=== PATIENT | male | born 1945 | race Caucasian/White ===

== ENCOUNTER 2017-10-05 07:10 | Emergency (ER) | payer BC, OTHER ==
--- NOTE | 2017-10-05 07:39 | UC ---
Respiratory Complaint HPI - HPI Summary HPI Summary: 3-[address], FEVER TMAX 101, COUGH, MYALGIAS, NAUSEA. STARTED WITH WATERY DIARRHEA YESTERDAY. FEELS EXTREMELY FATIGUED. LOST HIS VOICE. FOUND TO BE HYPOXIC HERE WITH O2SAT 88-90%. HAS ASTHMA. NO H/O SMOKING. UTD FLU SHOT. - History of Current Complaint Stated Complaint: SORE THROAT Time Seen by Provider: 10/05/17 07:14 Hx Obtained From: Patient, Family/Miner - Onset/Duration: Gradual Onset, Lasting Days, Still Present Timing: Constant Severity Initially: Moderate Severity Currently: Moderate Pain Intensity: 6 Pain Scale Used: 0-10 Numeric Character: Cough: Productive - YELLOW SPUTUM Aggravating Factors: Nothing Alleviating Factors: Nothing Associated Signs And Symptoms: Positive: Fever, URI. Negative: Dyspnea, Wheezing - Allergies/Home Medications Allergies/Adverse Reactions: Allergies Allergy/AdvReac Type Severity Reaction Status Date / Time Antihistamines, AdvReac See Comment Verified 10/05/17 07:43 Diphenhydramine-typ Home Medications: Home Medications Acetaminophen [Acetaminophen Extra Stren] 2 tab PO QID PRN 10/05/17 [History Confirmed 10/05/17] PMH/Surg Hx/FS Hx/Imm Hx Respiratory History: Asthma - Surgical History Surgical History: Yes Surgery Procedure, Year, and Place: L hip replacement. L scaphoid pinned. HERNIA REPAIR - Family History Known Family History: Negative: Hypertension - Social History Alcohol Use: Occasionally Substance Use Type: None Smoking Status (MU): Never Smoked Tobacco Review of Systems Constitutional: Fever, Fatigue ENT: Sore Throat Respiratory: Cough Cardiovascular: Negative Gastrointestinal: Diarrhea, Nausea Musculoskeletal: Myalgia Neurological: Weakness All Other Systems Reviewed And Are Negative: Yes Physical Exam Triage Information Reviewed: Yes Appearance: No Pain Distress, Well-Nourished, Ill-Appearing - APPEARS FATIGUED Vital Signs Reviewed: Yes Eyes: Positive: Conjunctiva Clear ENT: Positive: Hearing grossly normal, Pharynx normal, TMs normal Neck: Positive: Supple, Nontender, No Lymphadenopathy Respiratory: Positive: Lungs clear, Normal breath sounds, No respiratory distress. Negative: Crackles, Stridor, Wheezing Cardiovascular: Positive: Tachycardia Abdomen Description: Positive: Soft Musculoskeletal: Positive: No Edema Neurological: Positive: Alert Psychological: Positive: Normal Response To Family, Age Appropriate Behavior Skin: Negative: rashes UC Diagnostic Evaluation - EKG Cardiac Rate: Tachycardia Cardiac Rhythm: Other Rhythm: New - TACHYCARDIC 116 BPM Ectopy: None ST Segment: Normal Respiratory Course/Dx - Course Course Of Treatment: TO [facility] ED BY AMBULANCE - Differential Dx/Diagnosis Provider Diagnoses: HYPOXIA/FEVER/TACHYCARDIA - Physician Notification/Consults Discussed Patient Care With: Rigo Salas - TO [facility] ED BY AMBULANCE Time Discussed With Above Provider: 07:49 Instructed by Provider To: MD Will See In ED Discharge - Discharge Plan Condition: Stable Disposition: TRANS HIGHER LVL OF CARE FAC Referrals: Elizabeth Romeo MD [Primary Care Provider] -
[2017-10-05 07:42] VITALS: BP 121/69
== END 2017-10-05 08:00 | disposition short-term general hospital (02) ==
LOC: UCEAST 07:10
DX: R09.02 Hypoxemia (principal); R50.9 Fever, unspecified; R00.0 Tachycardia, unspecified; R05 Cough; J02.9 Acute pharyngitis, unspecified; M79.1 Myalgia; R11.0 Nausea; J45.909 Unspecified asthma, uncomplicated; Z88.8 Allergy status to other drugs, medicaments and biological substances
CPT/HCPCS: 93005; 99213; G0463

== ENCOUNTER 2017-10-05 08:15 | Observation (INO) | payer BC ==
[2017-10-05 09:45] LABS: Hematocrit 43 % (42-52); Hemoglobin 14.8 g/dl (14.0-18.0); Mean Corpuscular HGB Conc 35 g/dl (31-36); Mean Corpuscular Hemoglobin 29 pg (27-31); Mean Corpuscular Volume 84 fL (80-94); Mean Platelet Volume 8 um3 (7.4-10.4); Red Blood Count 5.07 10^6/ul (4.0-5.4); Red Cell Distribution Width 14 % (10.5-15); White Blood Count 13.7 10^3/ul (3.5-10.8)
[2017-10-05] MEDS ORDERED: cefTRIAXone(*) 1 GM in NS 0.9% 50 ML* 50 ML IVPB ONE (09:50)
[2017-10-05] MEDS ORDERED: Azithromycin IV(*) 500 MG in NS 0.9% 250 ML* 250 ML IVPB ONE (09:50)
[2017-10-05 09:51] LABS: Comments Flag Yes
[2017-10-05 09:52] LABS: Add Diff/Slide Review? Slide Review Added
[2017-10-05 09:59] LABS: Albumin 3.9 g/dL (3.2-5.2); BUN/Creatinine Ratio 21.6 (8-20); Calcium 9.1 mg/dL (8.6-10.3); EGFR African American 92.9 (>60); EGFR Non-African American 72.2 (>60); Globulin 3.8 g/dL (2-4); Potassium 3.4 mmol/L (3.5-5.0); Total Bilirubin 1.1 mg/dL (0.2-1.0); Total Protein 7.7 g/dL (6.4-8.9)
[2017-10-05 10:00] LABS: Troponin I 0.02 ng/mL (<0.04)
[2017-10-05 10:08] LABS: Immature Granulocytes 6 % (0-9); Myelocytes % 1 % (0-1); Neutrophil % 74 % (38-83); Reactive Lymph % 5 % (0-6)
[2017-10-05 10:09] LABS: RBC Morphology Normal (Normal)
[2017-10-05] MEDS ORDERED: Iohexol 350* (CONTRAST) 500 ML MDV IV ONE (10:18)
[2017-10-05] MEDS ORDERED: NS 0.9% 1000 ML* 1,000 ML IV ONE ×2 (10:21→10:22)
[2017-10-05] MEDS ORDERED: NS 0.9% 500 ML* 500 ML IV ONE (10:22)
--- NOTE | 2017-10-05 10:22 | RAD ---
Indication: Cough, shortness of breath. 2 views of the chest including dual energy PA views demonstrate no mediastinal shift. Heart is of normal size and configuration. Lung dowd appear clear. IMPRESSION: No active cardiopulmonary disease is noted.
[2017-10-05] MEDS ORDERED: Acetaminophen TAB* 325 MG PO ONE (11:03)
--- NOTE | 2017-10-05 11:14 | RAD ---
Indication: Elevated d-dimer, hypoxia. Contrast: Administered 72.0 ml of OMNIPAQUE 350 mg/ml. CTA of the chest was performed after IV contrast administration. Coronal and sagittal reconstructed images were obtained. Pulmonary arterial tree is adequately opacified. No obvious filling defects are present to suggest pulmonary embolus. Small 3 to 5 mm pretracheal lymph nodes are noted. No hilar adenopathy is noted. The heart demonstrates no pericardial effusion. The trachea and major bronchi appear patent. Lung dowd demonstrate dependent changes. No alveolar consolidation is noted. Hepatic steatosis is noted. IMPRESSION: No definite pulmonary embolus is noted.
[2017-10-05] MEDS ORDERED: Albuterol 2.5 MG/3 ML NEB.SOL* (0.083%) INH PRN (11:22)
[2017-10-05] MEDS ORDERED: Acetaminophen TAB* 325 MG PO PRN (11:22)
[2017-10-05] MEDS ORDERED: Potassium Chlor TAB* 20 MEQ TAB.ER PO ONE (11:25)
[2017-10-05] MEDS ORDERED: Ondansetron INJ* 2 MG/ML VIAL IV PRN (11:25)
[2017-10-05] MEDS ORDERED: NS 0.9% 1000 ML* 1,000 ML IV SCH (11:30)
[2017-10-05 11:52] LABS: Urine Bacteria Absent (Absent); Urine Bilirubin Negative (Negative); Urine Glucose Negative (Negative); Urine Nitrite Negative (Negative)
[2017-10-05] MEDS: Albuterol/Ipratropium NEB.SOL* Albuterol 2.5 MG/Ipratropium 0.5 MG 3 ML INH SCH ×4 (13:38→23:54)
--- NOTE | 2017-10-05 14:56 | HP ---
CC: Dr. Orr * HISTORY AND PHYSICAL: DATE OF ADMISSION: 10/05/17 PRIMARY CARE PROVIDER: Dr. Orr. ATTENDING PHYSICIAN WHILE IN THE HOSPITAL: Damon Mehta MD * (report dictated by Chepe Garcia NP). CHIEF COMPLAINT: 1. Cough. 2. Fevers. 3. Chills. HISTORY OF PRESENT ILLNESS: Mr. Rodriguez is a 72-year-old male patient, really his only history is asthma. He comes into our ER today and states that he recently did have sick contacts. His grandchild and his daughter were both sick. They were having similar symptoms such as sore throat, congested cough. He has been bringing up a yellow type sputum. He just has not been feeling well. He has been feeling weak, tired, fatigued. He denies really aching all over, but he states he has been having some nausea and diarrhea starting today. He was concerned and went to [facility] today where it was noted that he was hypoxic, so they sent him over to the hospital today to re- evaluate him. He states he is having some chest discomfort particularly when he coughs and he states he has been having fever as high as 101 and he has had some shortness of breath that has been getting progressively worse really since Saturday. He recently did have travel to [place] with his . Denies any calf pain or leg pain. Denies having any abdominal discomfort, but he states he just does not feel well. There was concern, he came in, it was noted he had an elevated white count. He was febrile. He is a little tachycardic. In addition , he is mildly hypoxic right around 89% to 90% on room air, so we were asked to evaluate for admission. PAST MEDICAL HISTORY: Significant for asthma. PAST SURGICAL HISTORY: 1. He has had total hip replacement. 2. He has had wrist surgery. HOME MEDICATIONS: Include according to him, he is only taking; 1. Ventolin 1 puff every 4 hours as needed, but he uses only 3 times a day. 2. He is also taking Advair 1 puff inhaled b.i.d. 4. He has been taking Tylenol 650 mg every 4 to 6 hours as needed. ALLERGIES TO MEDICATIONS: Include antihistamines. FAMILY HISTORY: There was no reports of heart disease, strokes, or cancers by the patient. It was reviewed and noncontributory. SOCIAL HISTORY: She does not smoke. She does not drink. Surrogate decision maker is his . REVIEW OF SYSTEMS: There is a documented fever. Denied having any significant weight change. There was no double vision. Denies having any ear discharge. There was rhinorrhea. There was sore throat. No thyroid enlargement. There is chest pain per my HPI. He did admit to having shortness of breath, but no orthopnea. No nocturnal dyspnea. There was no abdominal pain. No nausea, no vomiting, no dysuria, no frequency, no seizure, no loss of consciousness, no pruritus and no skin ulcerations. Review of 14 systems completed, all others negative. PHYSICAL EXAMINATION GENERAL: At this time, Mr. Rodriguez is a 72-year-old male patient. He appears to be well nourished, well developed. He is sitting in the ED stretcher. He does not appear to be in any acute distress. VITAL SIGNS: Blood pressure 147/76, pulse 104, respirations 18, O2 sat 95% on 2 L, and his temperature was 101. HEENT: Head: Atraumatic. Eyes: EOMs are intact. Sclerae anicteric. Throat : Oral mucosa appears to be moist. No oropharyngeal erythema. Ears: His TMs do not appear to be erythematic at this point. LUNGS: He did have coarse breath sounds in the upper lobes. He had some wheezing in the lower bases and decreased air. Decreased breath sounds in the lower lobes. HEART: Sounds S1 and S2. He is regular rate and rhythm. He had no murmurs, rubs, or gallops. He is a little tachycardic. ABDOMEN: Soft, flat, nontender. His bowel sounds are present. EXTREMITIES: Pulses were 2+ throughout. He had no peripheral edema. He had 5/ 5 strength. NEUROLOGIC: At this point, neurologically he is awake, he is alert, he is oriented x3. His tongue is midline. His direct chill caster were equal. He had no gross focal deficits. SKIN: Intact. LABORATORY DATA/DIAGNOSTIC STUDIES: WBC of 13.7, RBC of 5.07, hemoglobin 14.8 , hematocrit of 43, and platelet count of 172,000. D-dimer was 662. Sodium 126 , potassium 3.4, chloride of 94, bicarbonate 21, BUN 22, creatinine 1.02, glucose 136, lactic 1, calcium 9.1. Total bilirubin 1.1, AST 42, ALT 32, alkaline phosphatase 89, troponin 0.02, albumin 3.9. Serology was negative for flu. He had a chest x-ray obtained today, which revealed no active cardiopulmonary disease. He had an EKG obtained today showing a sinus tachycardia, rate of 111. He had no ST elevations. No T-wave inversions were noted. He had a CTA of the chest which revealed no definite PE is identified. He did have small paratracheal lymph nodes identified. Old medical records reviewed. ASSESSMENT AND PLAN: Mr. Rodriguez is a 72-year-old male patient coming into the ED today with complaints of cough, shortness of breath, not feeling well. On evaluation today, found to have signs of sepsis. We were asked to evaluate for admission. He will be admitted under inpatient status for: 1. Sepsis secondary to most likely viral illness, although early pneumonia cannot be excluded. At this point, I will go ahead and place the patient on azithromycin and Rocephin. He did get a 2 L normal saline bolus here in the ED. He got blood cultures and his lactic was normal. We will get a serial lactic. We will hydrate him and we will continue these antibiotics and again wait for a source to identify itself. 2. Asthma with exacerbation. At this point, we will put him on Dulera, steroids, nebs every 4 hours, pulmonary toileting in the form of a flutter valve , get a sputum culture and continue to follow. 4. Diarrhea. It is probably secondary again to a viral illness. We will send off stool studies and again, we will keep the patient hydrated. 5. DVT prophylaxis. He will be placed on heparin subcu. 6. Code status. He is full code. 7. Fluids, electrolytes, and nutrition. He can have a regular diet. TIME SPENT: Time spent on the admission was 60 minutes, greater than half the time was spent [id number] with the patient obtaining my history and physical; the other half time was spent going over the plan of care with the patient and implementing plan of care. I did discuss the plan of care with my attending, Dr. Mehta, he is in agreement. CHEPE GARCIA BILL [id number]/[facility] #: [id number] AVELINO
[2017-10-05 15:02] LABS: BUN/Creatinine Ratio 19.6 (8-20); EGFR African American 92.9 (>60); EGFR Non-African American 72.2 (>60); Potassium 3.9 mmol/L (3.5-5.0)
[2017-10-05] MEDS: Heparin VIAL(*) 5000 UNITS/ML VIAL (FIVE THOUSAND) SUBCUT SCH ×2 (15:19→22:30)
[2017-10-05] MEDS: predniSONE TAB* 20 MG PO SCH (15:56)
[2017-10-05] MEDS: Mometasone/Formoter 200/5 MDI INH SCH (20:22)
[2017-10-06] MEDS: Albuterol/Ipratropium NEB.SOL* Albuterol 2.5 MG/Ipratropium 0.5 MG 3 ML INH SCH ×2 (04:16→07:50)
[2017-10-06 05:47] LABS: Hematocrit 37 % (42-52); Hemoglobin 12.8 g/dl (14.0-18.0); Mean Corpuscular HGB Conc 34 g/dl (31-36); Mean Corpuscular Hemoglobin 29 pg (27-31); Mean Corpuscular Volume 84 fL (80-94); Mean Platelet Volume 8 um3 (7.4-10.4); Red Blood Count 4.43 10^6/ul (4.0-5.4); Red Cell Distribution Width 14 % (10.5-15); White Blood Count 9.1 10^3/ul (3.5-10.8)
[2017-10-06 05:54] LABS: BUN/Creatinine Ratio 16.7 (8-20); Calcium 8.3 mg/dL (8.6-10.3); EGFR African American 107.3 (>60); EGFR Non-African American 83.4 (>60); Potassium 3.2 mmol/L (3.5-5.0)
[2017-10-06] MEDS: Heparin VIAL(*) 5000 UNITS/ML VIAL (FIVE THOUSAND) SUBCUT SCH (06:20)
[2017-10-06] MEDS ORDERED: Potassium Chlor TAB* 20 MEQ TAB.ER PO ONE (07:29)
[2017-10-06] MEDS: Mometasone/Formoter 200/5 MDI INH SCH (07:52)
[2017-10-06] MEDS: predniSONE TAB* 20 MG PO SCH (08:16)
[2017-10-06] MEDS ORDERED: cefTRIAXone(*) 1 GM in NS 0.9% 50 ML* 50 ML IVPB SCH (10:30)
[2017-10-06] MEDS ORDERED: Albuterol/Ipratropium NEB.SOL* Albuterol 2.5 MG/Ipratropium 0.5 MG 3 ML INH SCH (11:00)
[2017-10-06] MEDS ORDERED: Azithromycin IV(*) 250 MG in NS 0.9% 250 ML* 250 ML IVPB SCH (11:00)
[2017-10-06 11:27] VITALS: BP 126/57
--- NOTE | 2017-10-06 11:42 | DCNOTE ---
Subjective Date of Service: 10/06/17 Interval History: Patient seen and examined at bedside. Patient reports feeling significantly better. Still has no voice. Has 2 episodes of diarrhea this AM. Productive cough resolved and now has dry cough. Congestion improved. Sat 96% on room air. Family History: Unchanged from Admission Social History: Unchanged from Admission Past Medical History: Unchanged from Admission Objective Active Medications: Acetaminophen (Tylenol Tab*) 650 mg PO Q4H PRN Albuterol (Ventolin 2.5 Mg/3 Ml Neb.Chey*) 2.5 mg INH Q2H PRN Albuterol/Ipratropium (Duoneb (Albuterol 2.5 Mg/Ipratropium 0.5 Mg)) 1 neb INH [id number] AWAKE ALFREDO Heparin Sodium (Porcine) (Heparin Vial(*)) 5,000 units SUBCUT Q8HR [facility] Azithromycin 250 mg/ Sodium (Chloride) 250 mls @ 250 mls/hr IVPB Q24H [facility] Sodium Chloride (Ns 0.9% 1000 Ml*) 1,000 mls @ 100 mls/hr IV PER RATE [facility] Ceftriaxone Sodium 1 gm/ (Sodium Chloride) 50 mls @ 200 mls/hr IVPB Q24H [facility] Ceftriaxone Sodium 1 gm/ (Dextrose) 50 mls @ 200 mls/hr IVPB Q24H [facility] Mometasone Furoate/Formoterol Fumar (Dulera 200/5 Mdi*) 2 puff INH BID ALFREDO Ondansetron HCl (Zofran Inj*) 4 mg IV Q6H PRN Prednisone (Deltasone Tab*) 60 mg PO DAILY [facility] Vital Signs Temp Pulse Resp BP Pulse Ox 98.1 F 88 15 126/57 95 10/06/17 11:27 10/06/17 11:27 10/06/17 11:27 10/06/17 11:27 10/06/17 11:27 Oxygen Devices in Use Now: Nasal Cannula Appearance: sitting up in bed, NAD Eyes: No Scleral Icterus, PERRLA Ears/Nose/Mouth/Throat: NL Teeth, Lips, Gums Neck: NL Appearance and Movements; NL JVP Respiratory: Symmetrical Chest Expansion and Respiratory Effort, - - coarse at L base; no wheezing heard Cardiovascular: NL Sounds; No Murmurs; No JVD, RRR Abdominal: NL Sounds; No Tenderness; No Distention Extremities: No Edema Skin: No Rash or Ulcers Neurological: Alert and Oriented x 3, NL Muscle Strength and Tone Lines/Tubes/Other Access: Clean, Dry and Intact Peripheral IV Nutrition: Taking PO's Result Diagrams: 10/06/17 05:30 10/06/17 05:30 Assess/Plan/Problems-Billing Pt is a 72 y/o M w/ hx of asthma presented to the ER w/ fever of 101 and SOB found to by hypoxic. - Patient Problems (1) Upper respiratory infection (2) Asthma (3) DVT prophylaxis (4) Full code status Status and Disposition: Change to OBV. Stable to be discharged home. Please see dictated discharge summary for detail.
--- NOTE | 2017-10-06 15:23 | ED ---
Booker Bautista Stephanie, scribed for Rigo Salas MD on 10/05/17 at 1017 . HPI Febrile Illness - HPI Summary HPI Summary: The pt is a 72 y/o M presenting to the ED with c/o fever that began 3 days ago. Symptoms include a productive cough with yellow mucus, nausea, sneezing, loss of appetite, sore throat, diarrhea, dehydration, dizziness, and weakness. The pt denies CP and muscle aches. The pt received his flu shot this season. - History of Current Complaint Chief Complaint: EDRespiratoryDistress Time Seen by Provider: 10/05/17 09:15 Hx Obtained From: Patient Timing: Constant Pain Intensity: 5 Pain Scale Used: 0-10 Numeric Aggravating Factors: Nothing Alleviating Factors: Nothing Associated Signs and Symptoms: Cough - with yellow mucus, Diarrhea, Dizziness, Nausea, Sore Throat, Weakness, Other: - sneezing, loss of appetite, dehydration - Allergy/Home Medications Allergies/Adverse Reactions: Allergies Allergy/AdvReac Type Severity Reaction Status Date / Time Antihistamines, AdvReac See Comment Verified 10/05/17 08:17 Diphenhydramine-typ PMH/Surg Hx/FS Hx/Imm Hx Endocrine/Hematology History: Denies: Hx Diabetes, Hx Thyroid Disease Cardiovascular History: Denies: Hx Hypercholesterolemia, Hx Hypertension, Hx Pacemaker/ICD, Hx Peripheral Vascular Disease Respiratory History: Reports: Hx Asthma - HAYFEVER Denies: Hx Chronic Obstructive Pulmonary Disease (COPD) GI History: Denies: Hx Ulcer History: Denies: Hx Renal Disease Musculoskeletal History: Denies: Hx Arthritis, Hx Rheumatoid Arthritis, Hx Osteoporosis, Hx Scoliosis Sensory History: Denies: Hx Cataracts, Hx Contacts or Glasses, Hx Glaucoma, Hx Hearing Aid Opthamlomology History: Denies: Hx Cataracts, Hx Contacts or Glasses, Hx Glaucoma Neurological History: Denies: Hx Headaches, Hx Seizures, Hx Transient Ischemic Attacks (TIA), Other Neuro Impairments/Disorders Psychiatric History: Denies: Hx Anxiety, Hx Depression, Hx Panic Disorder - Surgical History Surgery Procedure, Year, and Place: L hip replacement. L scaphoid pinned. HERNIA REPAIR Infectious Disease History: No Infectious Disease History: Reports: Traveled Outside the [place] in Last 30 Days - CRISTAL Denies: Hx Clostridium Difficile, Hx Hepatitis, Hx Human Immunodeficiency Virus (HIV), Hx of Known/Suspected MRSA, Hx Shingles, Hx Tuberculosis, Hx Known/ Suspected VRE, Hx Known/Suspected VRSA, History Other Infectious Disease - Family History Known Family History: Negative: Hypertension - Social History Alcohol Use: Occasionally Substance Use Type: Reports: None Hx Tobacco Use: No Smoking Status (MU): Never Smoked Tobacco Review of Systems Positive: Fever, Other - sneezing, loss of appetite, dehydration, dizziness, . Negative: Chills Negative: Erythema Positive: Sore Throat Negative: Chest Pain Positive: Cough - with yellow mucus. Negative: Shortness Of Breath Positive: Diarrhea, Nausea. Negative: Abdominal Pain, Vomiting Negative: dysuria, hematuria Negative: Myalgia, Edema Negative: Rash Positive: Weakness All Other Systems Reviewed And Are Negative: Yes Physical Exam - Summary Physical Exam Summary: Constitutional: Well-developed, Well-nourished, Alert. (-) Distressed. hoarse voice. 100.9 F fever. Skin: Warm, Dry HENT: Normocephalic; Atraumatic Eyes: Conjunctiva normal Neck: Musculoskeletal ROM normal neck. (-) JVD, (-) Stridor, (-) Tracheal deviation Cardio: Rhythm regular, rate normal, Heart sounds normal; Intact distal pulses; The pedal pulses are 2+ and symmetric. Radial pulses are 2+ and symmetric. (-) Murmur Pulmonary/Chest wall: Effort normal. (-) Respiratory distress, (-) Wheezes, (-) Rales Abd: Soft, (-) Tenderness, (-) Distension, (-) Guarding, (-) Rebound Musculoskeletal: (-) Edema Lymph: (-) Cervical adenopathy Neuro: Alert, Oriented x3 Psych: Mood and affect Normal Triage Information Reviewed: Yes Vital Signs On Initial Exam: Initial Vitals Temp Pulse Resp BP Pulse Ox 100.3 F 113 22 139/50 94 10/05/17 08:17 10/05/17 08:17 10/05/17 08:17 10/05/17 08:17 10/05/17 08:17 Vital Signs Reviewed: Yes - [place] Coma Scale Coma Scale Total: 15 Diagnostics - Vital Signs Vital Signs Temp Pulse Resp BP Pulse Ox 10/05/17 08:59 91 10/05/17 08:51 111 89 10/05/17 08:17 100.3 F 113 22 139/50 94 - Laboratory Lab Results: Lab Results 10/05/17 10/05/17 10/05/17 Range/Units 09:30 09:30 09:30 WBC 13.7 H (3.5-10.8) 10^3/ul RBC 5.07 (4.0-5.4) 10^6/ul Hgb 14.8 (14.0-18.0) g/dl Hct 43 (42-52) % MCV 84 (80-94) fL MCH 29 (27-31) pg MCHC 35 (31-36) g/dl RDW 14 (10.5-15) % Plt Count 172 (150-450) 10^3/ul MPV 8 (7.4-10.4) um3 Neut % (Auto) 77.4 (38-83) % Lymph % (Auto) 7.7 L (25-47) % Sargent % (Auto) 14.7 H (1-9) % Eos % (Auto) 0 (0-6) % Baso % (Auto) 0.2 (0-2) % Absolute Neuts (auto) 10.6 H (1.5-7.7) 10^3/ul Absolute Lymphs (auto) 1.0 (1.0-4.8) 10^3/ul Absolute Monos (auto) 2.0 H (0-0.8) 10^3/ul Absolute Eos (auto) 0 (0-0.6) 10^3/ul Absolute Basos (auto) 0 (0-0.2) 10^3/ul Absolute Nucleated RBC 0.03 10^3/ul Nucleated RBC % 0.2 D-Dimer, Quantitative (Less Than 230) ng/mL Sodium 126 L (133-145) mmol/L Potassium 3.4 L (3.5-5.0) mmol/L Chloride 94 L (101-111) mmol/L Carbon Dioxide 21 L (22-32) mmol/L Anion Gap 11 (2-11) mmol/L BUN 22 (6-24) mg/dL Creatinine 1.02 (0.67-1.17) mg/dL Est GFR ( Amer) 92.9 (>60) Est GFR (Non-Af Amer) 72.2 (>60) BUN/Creatinine Ratio 21.6 H (8-20) Glucose 136 H (70-100) mg/dL Lactic Acid 1.0 (0.5-2.0) mmol/L Calcium 9.1 (8.6-10.3) mg/dL Total Bilirubin 1.10 H (0.2-1.0) mg/dL AST 42 H (13-39) U/L ALT 32 (7-52) U/L Alkaline Phosphatase 89 (34-104) U/L Troponin I 0.02 (<0.04) ng/mL Total Protein 7.7 (6.4-8.9) g/dL Albumin 3.9 (3.2-5.2) g/dL Globulin 3.8 (2-4) g/dL Albumin/Globulin Ratio 1.0 (1-3) Influenza A (Rapid) (Negative) Influenza B (Rapid) (Negative) 10/05/17 10/05/17 Range/Units 09:30 09:42 WBC (3.5-10.8) 10^3/ul RBC (4.0-5.4) 10^6/ul Hgb (14.0-18.0) g/dl Hct (42-52) % MCV (80-94) fL MCH (27-31) pg MCHC (31-36) g/dl RDW (10.5-15) % Plt Count (150-450) 10^3/ul MPV (7.4-10.4) um3 Neut % (Auto) (38-83) % Lymph % (Auto) (25-47) % Sargent % (Auto) (1-9) % Eos % (Auto) (0-6) % Baso % (Auto) (0-2) % Absolute Neuts (auto) (1.5-7.7) 10^3/ul Absolute Lymphs (auto) (1.0-4.8) 10^3/ul Absolute Monos (auto) (0-0.8) 10^3/ul Absolute Eos (auto) (0-0.6) 10^3/ul Absolute Basos (auto) (0-0.2) 10^3/ul Absolute Nucleated RBC 10^3/ul Nucleated RBC % D-Dimer, Quantitative 662 H (Less Than 230) ng/mL Sodium (133-145) mmol/L Potassium (3.5-5.0) mmol/L Chloride (101-111) mmol/L Carbon Dioxide (22-32) mmol/L Anion Gap (2-11) mmol/L BUN (6-24) mg/dL Creatinine (0.67-1.17) mg/dL Est GFR ( Amer) (>60) Est GFR (Non-Af Amer) (>60) BUN/Creatinine Ratio (8-20) Glucose (70-100) mg/dL Lactic Acid (0.5-2.0) mmol/L Calcium (8.6-10.3) mg/dL Total Bilirubin (0.2-1.0) mg/dL AST (13-39) U/L ALT (7-52) U/L Alkaline Phosphatase (34-104) U/L Troponin I (<0.04) ng/mL Total Protein (6.4-8.9) g/dL Albumin (3.2-5.2) g/dL Globulin (2-4) g/dL Albumin/Globulin Ratio (1-3) Influenza A (Rapid) Negative (Negative) Influenza B (Rapid) Negative (Negative) Result Diagrams: 10/06/17 05:30 10/06/17 05:30 Lab Statement: Any lab studies that have been ordered have been reviewed, and results considered in the medical decision making process. - Radiology CXR Xray Interpretation: No Acute Changes Radiology Interpretation Completed By: Radiologist - No active cardiopulmonary disease is noted. - CT CT A Chest CT Interpretation: No Acute Changes - No definite pulmonary embolus is noted. CT Interpretation Completed By: Radiologist - EKG 09:25 EKG Rhythm: Sinus Tachycardia EKG Interpretation: 111 BPM. JE no-stemi. lateral t-wave flattening Course/Dx - Course Course Of Treatment: The pt will require admission for supplemental oxygen and sepsis. Suspected viral illness. The pt may have an infiltrate which is masked by dehydration. - Diagnoses Provider Diagnoses: Hypoxemia, Sepsis, Viral syndrome, Productive cough Discharge - Discharge Plan Condition: Good Disposition: ADMITTED TO [facility] documentation as recorded by the Booker mayorga Stephanie accurately reflects the service I personally performed and the decisions made by Maritza jimenes Jerry, MD.
--- NOTE | 2017-10-07 04:59 | DS ---
CC: Dr. Orr * DISCHARGE SUMMARY: DATE OF ADMISSION: 10/05/17 DATE OF DISCHARGE: 10/06/17 PRIMARY CARE PROVIDER: Dr. Orr. ATTENDING PROVIDER: Ileana Medley MD* (DICTATED BY RAYNE JENNINGS NP) PRIMARY DIAGNOSES: 1. Sepsis on admission secondary to upper respiratory infection. 2. Diarrhea. 3. Asthma exacerbation. STUDIES WHILE IN THE HOSPITAL: 1. CTA of the chest 10/04/17, no definite pulmonary embolism was noted. 2. Chest x-ray 10/05/17, no active cardiopulmonary disease is noted. MEDICATIONS AT THE TIME OF DISCHARGE: New medications: 1. Zithromax 250 mg oral daily for 6 additional days. 2. Ceftin 250 mg oral twice daily for 5 additional days. 3. Prednisone 20 mg tablet 2 tablets for 4 days, 1 tablet for 4 days, half tablet 4 days and stopped. The following medications are the medications that the patient came in on: 1. Advil 400 mg every 12 hours as needed. 2. Advair Diskus 100/500 mg 1 puff inhaled daily. 3. Albuterol HFA 1 puff inhaled every 4 hours as needed. 4. Extra strength Tylenol 2 tablets oral 4 times daily as needed. HISTORY OF PRESENT ILLNESS AND HOSPITAL COURSE: Mr. Rodriguez is a 72-year-old male with a history of asthma who presented to the emergency room from [facility] and was with a complaint of body aches, cough, sore throat, as well as high fever, found to have leukocytosis as well as tachycardia. Although chest x-ray did not reveal any acute findings. The patient required 3 L of oxygen on admission and was admitted to the medical floor for further treatment. The patient was pancultured and given IV fluids. He was placed on Zithromax and Rocephin in addition to steroids, nebulizers and home inhaled steroids. With these interventions, the patient was able to be weaned off oxygen. His leukocytosis resolved. In addition, the patient developed diarrhea, which could have also been due to the viral illness. The diarrhea had significantly improved and with 2 L of IV fluid the patient's sodium has normalized. He will be given some additional potassium for repletion this morning prior to discharge. The patient also was tachycardic on presentation with a heart rate in the low 100s this morning. The patient's heart rate is now back to baseline in the low 80s. He is now oxygenating 96% on room air and is stable to be discharged home. He will continue with a complete a 7-day course of antibiotics as well as a 12 day prednisone taper. Vitals are as follows: Temperature 92, heart rate 90, respiratory rate 17, blood pressure 119/64, oxygen saturation 96% on room air. At this point, he was stable for discharge home. DISCHARGE PLAN: The patient was discharged on a regular diet. The patient has been instructed to follow up with Dr. Orr within 4 to 7 days. The patient should return to the hospital if he experiences any worsening shortness of breath or fever. I have reviewed all the instructions with the patient and he is agreeable with the discharge today. This is a summarized report of the complex medical history and hospital stay. For more details, please see the entire medical record. TIME SPENT: Time for the discharge was 60 minutes, and 30 minutes was spent with the patient discussing medications at discharge and follow up instructions. CONDITION ON DISCHARGE: Stable RAYNE JENNINGS NP [id number]/CPS #: [id number] AVELINO
[2017-10-07] MEDS ORDERED: cefTRIAXone(*) 1 GM in D5W 50 ML BAG* 50 ML IVPB SCH (10:30)
== END 2017-10-06 13:50 | disposition home or self-care (01) ==
LOC: ED 08:15 → MED 11:20 → INTOOBSV 11:20
PROVIDERS: ADMIT Internal Medicine; ATTEND Internal Medicine
DX: A41.9 Sepsis, unspecified organism (principal); J06.9 Acute upper respiratory infection, unspecified; R19.7 Diarrhea, unspecified; J45.901 Unspecified asthma with (acute) exacerbation; R00.0 Tachycardia, unspecified; Z96.642 Presence of left artificial hip joint
CPT/HCPCS: 36415; 71020; 71275; 80048; 80053; 81003; 81015; 83605; 84484; 85025; 85379; 85610; 87040; 87177; 87209; 87328; 87329; 87502; 93005; 94640; 94760; 96365; 96367; 96372; 99285; A9270-GY; G0378; J0456; J0696; J1644; J7512; Q9967

== ENCOUNTER 2018-03-16 07:00 | Emergency (ER) | payer BC, OTHER ==
[2018-03-16 07:22] VITALS: BP 139/79
--- NOTE | 2018-03-16 08:17 | UC ---
Yamilet Bautista Gabriel, scribed for HiginioVladimir rodgers MD on 03/16/18 at 0726 . Eye Complaint HPI - HPI Summary HPI Summary: This patient is a 72 year old M presenting to [facility] accompanied by his with a chief complaint of conjunctivitis in the right eye that began 5 days ago. 2 weeks ago the patient had a retinal repair for a small tear, a week later the eye began to itch, and 5 days ago he developed a conjunctivitis in the right eye. He returned to the surgeon with who examined the eye and dismissed it as viral and instructed him to use a warm compress. Although, he believes it is getting worse. The patient rates the pain 5/10 in severity. Patient reports orbital pain, discharge, and eye floaters. Patient denies decreased vision, cough, n/v/d, fever, and trouble swallowing. Pt states he may have gotten BBQ grill smoke in his eye but no foreign objects MD: Pt here with eye complaint of right eye redness.. Vitals signs stable afebrile, BP is 139/79. Visit history: noncontributory to present complaint. History significant for asthma and hay fever. Nurse note: Patient states 2 weeks ago he developed floaters in his right eye. He saw his database architect, Adrien Mesa. He was then sent to [place] and the MD diganosed him with a retinal tear, which had a laser procedure done to the retina. He was recovering well until 5 days ago when he developed conjunctivitis. On he went back to [place] for follow-up and the MD there would not treat the conjunctivitis. He called [facility]'s office yesrterday, but could not get an appointment. The eye is worse today with pain and swelling and thick discharge - History of Current Complaint Chief Complaint: UCEye Stated Complaint: EYE COMPLAINT Time Seen by Provider: 03/16/18 07:08 Hx Obtained From: Patient Onset/Duration: Lasting Days - 1 WEEK, Still Present, Worse Since - 5 days Timing: Constant Severity Initially: Mild Severity Currently: Moderate Pain Intensity: 5 Pain Scale Used: 0-10 Numeric Location of Injury: Conjunctiva Associated Signs And Symptoms: Positive: Drainage (Purulent) - Allergies/Home Medications Allergies/Adverse Reactions: Allergies Allergy/AdvReac Type Severity Reaction Status Date / Time No Known Allergies Allergy Verified 03/16/18 07:10 Home Medications: Home Medications Fluticasone NASAL SPRAY 50MCG* [Flonase NASAL SPRAY 50MCG*] 2 spray NASAL DAILY 03/16/18 [History Confirmed 03/16/18] Loratadine [Claritin] 10 mg PO BEDTIME 03/16/18 [History Confirmed 03/16/18] PMH/Surg Hx/FS Hx/Imm Hx Respiratory History: Asthma Other History Of: Negative For: Hepatitis C - Surgical History Surgical History: Yes Surgery Procedure, Year, and Place: L hip replacement. L scaphoid pinned. HERNIA REPAIR - Family History Known Family History: Negative: Hypertension, Respiratory Disease, Seizure Disorder - Social History Occupation: Employed Full-time - [employer] Lives: With Family Alcohol Use: Occasionally Substance Use Type: None Smoking Status (MU): Never Smoked Tobacco - Immunization History Most Recent Influenza Vaccination: up to date Most Recent Pneumonia Vaccination: up to date Review of Systems Eyes: Drainage, Eye Redness, Other - eye pain Gastrointestinal: Negative - n/v/d All Other Systems Reviewed And Are Negative: Yes - Comments Additional Review of Systems Comments: Negative: decreased vision, cough, n/v/d, fever, and trouble swallowing. Positive: orbital pain, discharge, and eye floaters Physical Exam - Summary Physical Exam Summary: Appearance: The patient is well-appearing, is in no pain distress, and is well- nourished. Eyes: RIGHT EYE SHOWS DIFFUSE SWELLING WITHOUT ERYTHEMA ABOVE AND BELOW THE EYE , SCLERA IS DIFFUSELY INJECTED WITHOUT PERILIMBIC REDNESS, THERE IS NO ECCHYMOSIS, THE CORNEA APPEARS CLEAR, NO HYPHEMA: THERE IS SOME PURULENT DISCHARGE ALONG THE MARGINS OF THE LOWER LID WHICH IS ALSO INJECTED; PERIORBIT: WITHOUT REDNESS OR TENDERNESS TO PALPATION, NO EVIDENCE OF PERIORBITAL CELLULITIS OR PROPTOSIS ENT: The hearing is grossly normal, the pharynx is normal, and the TMs are normal. There is no muffled or hoarse voice. Neck: THERE IS A SIGNLE LYMPH NODE SWOLLEN IN THE RIGHT CERVICAL CHAIN Respiratory: The chest is nontender. The lungs are clear, there are normal breath sounds, and there is no respiratory distress. Cardiovascular: Heart is regular rate and rhythm. There is no murmur. Abdomen: The abdomen is soft and nontender. There is no organomegaly. Bowel sounds: present Musculoskeletal: Strength is intact. The patient moves all extremities. Neurological: The patient is alert. Psychological: The patient displays age appropriate behavior Skin: Negative for rashes. Triage Information Reviewed: Yes Vital Signs: Initial Vital Signs Temp 98.4 F 03/16/18 07:13 Pulse 71 03/16/18 07:13 Resp 16 03/16/18 07:13 BP 139/79 03/16/18 07:13 Pulse Ox 97 03/16/18 07:13 Vital Signs Reviewed: Yes Eye Complaint Course/Dx - Course Course Of Treatment: A 72 y/o with recent history of retinal tear and procedure comes to the [facility] with what looks like a conjunctivitis of the right eye, viral or bacterial. That has been getting worse for the last five day I will treat this as conjunctivitis. I spoke with patient about the importance of improvement and follow up with Dr. Laird tomorrow. Patient is Urgent/Emergent. BP elevated due to current condition w/o HTN in past medical history. - Differential Dx/Diagnosis Differential Diagnosis/HQI/PQRI: Conjunctivitis - right eye, Periorbital Cellulitis Provider Diagnoses: conjunctivitis of the right eye Discharge - Sign-Out/Discharge Documenting (check all that apply): Discharge/Admit/Transfer - Discharge Plan Condition: Stable Disposition: HOME Prescriptions: Polymyx/Trimethoprim OPTH* [Polytrim OPHTH*] 2 drop RIGHT EYE Q3H #1 btl MDD every 2 hours Patient Education Materials: Conjunctivitis (ED) Referrals: Elizabeth Romeo MD [Primary Care Provider] - Mitch Laird MD [Medical Doctor] - Additional Instructions: Your blood pressure reading today was 139/79, indicating HYPERTENSION/ PREHYPERTENSION. The 139 is slightly elevated from normal Follow-up with your primary care provider within 4 weeks for blood pressure readings and further evaluation, as needed. LEASE SEEK CARE AT THE EMERGENCY DEPARTMENT IF SYMPTOMS WORSEN OR IF NEW SYMPTOMS DEVELOP. WE DISCUSSED: 1. You have conjunctivitis of the right eye. 2. Treatment: Eye antibiotic: As we discussed: use every 2 hours to right eye; use 2 drops in left eye before sleep at night. Use for 7 days or one day after your condition has cleared up. If you develop increased redness after use, return for us to check you. You may be allergic to the medicine. 3. See Dr. Laird tomorrow as planned. 4. Over the next 12 hours this shouldn't get worse. Increase redness, itching or discomfort, may mean your allergic to the medication., and will need to be rechecked. Go to ED. 3. Call at any time with any questions or concerns. - Billing Disposition and Condition Condition: STABLE Disposition: HOME The documentation as recorded by the Yamilet mayorga Gabriel accurately reflects the service I personally performed and the decisions made by me, Vladimir Diez MD.
== END 2018-03-16 08:00 | disposition home or self-care (01) ==
LOC: UCEAST 07:00
DX: H10.31 Unspecified acute conjunctivitis, right eye (principal); J45.909 Unspecified asthma, uncomplicated; Z96.642 Presence of left artificial hip joint
CPT/HCPCS: 99212; G0463